=== PATIENT | female | born 1955 | race Caucasian/White ===

== ENCOUNTER 2018-02-22 06:33 | Inpatient (IN) ==
[2018-02-22] MEDS: 0.9 % Sodium Chloride 1,000 ML IVC SCH ×2 (07:53→20:43)
--- NOTE | 2018-02-22 08:59 | Pre-Sedation Evaluation ---
Pre-sedation evaluation - Pre-sedation checklist Date of procedure: 02/22/18 Procedure: left heart cath Recent Vitals: Last Vital Signs Temp 97.5 F L 02/22/18 07:25 Pulse 75 02/22/18 07:25 Resp 16 02/22/18 07:25 BP 116/71 02/22/18 07:25 Pulse Ox 98 02/22/18 07:25 H&P (including ROS) documented in medical record: Yes Previous reaction to sedatives/anesthetics: No Dietary Status: Clear fluids after Midnight Airway Assessment: Patient can open mouth completely, TMJ function normal ASA Classification *see protocol: CLASS II-Mild systemic disease Plan of Care: Pt appropriate candidate for procedure/moderate/conscious sedation , Risks/benefits of procedure/sedation discussed w/ patient/family Cardiac Registry (Cardio Only) - Functional Capacity Functional Capacity: >=4 METS with symptoms - Clincal Frailty Scale Clinical Frailty Scale: Managing Well
[2018-02-22] MEDS ORDERED: Verapamil 5 MG/2 ML VIAL ONE (09:37)
[2018-02-22] MEDS ORDERED: 0.9 % Sodium Chloride 1,000 ML ONE (09:38)
[2018-02-22] MEDS ORDERED: ISOVUE-370 200 ML INFUS..BTL IV ONE (09:38)
[2018-02-22] MEDS ORDERED: *HR* Heparin 10,000 UNIT/10 ML VIAL ONE (09:38)
[2018-02-22] MEDS ORDERED: Nitroglycerin 1,000 MCG/10 ML VIAL IV ONE (09:38)
[2018-02-22] MEDS ORDERED: Heparin 1,000 UNITS/500 mL 500 ML ONE (09:38)
--- NOTE | 2018-02-22 09:40 | History & Physical Report ---
Date of Encounter: 02/22/18 Time of Encounter: 09:45 24 Hour HP Update - Instructions Instructions: If the History and Physical is less than 30 days old and was completed prior to A.M. admission and or procedure and has NOT been updated on calendar day of procedure please complete this update prior to performing procedure. - Update Patient reports changes in Medical Condition: No Changes in examination, assessment, or condition: No Changes in Medication: No Preop tests/diagnostics Reviewed: Yes Surgery Remains Indicated: Yes Consent for Planned Operative Procedure(s) Verified: Yes
[2018-02-22] MEDS ORDERED: *HR* FentaNYL (PF) 100 MCG/2 ML VIAL ONE (10:09)
[2018-02-22] MEDS ORDERED: *HR* Midazolam HCl 2 MG/2 ML VIAL ONE (10:10)
--- NOTE | 2018-02-22 13:13 | Invasive Diagnostic Lab Proc ---
Name: Yvette Cordova Date of Study: 02/22/2018 Date: 1955 Ht: 62.0in Medical Record#: [id number] Age: 62 Wt: 149.25lb Gender: Female BSA: 1.69 Order #: [id number] BMI: 27.29 Physicians Procedure Physician: Dilan Sims MD, FACC Referring MD: Virgil Morales CNP Referring MD: Staff Name Position Time In Duyen Beaver RN Pre-Op Nurse 08:00 AM Gabriela Joe RN Pre-Op Nurse 08:00 AM Rob Mendosa RN Pre-Op Nurse 08:00 AM Toma Barnett RT (R) Scrub 10:03 AM Toma Barnett RT (R) Scrub 10:00 AM Merlin Tracy RN Roller Skate Assembler 10:00 AM Kayleigh Weiner RN Monitor 10:00 AM Priya Tovar RT (R) Monitor 10:17 AM Indications Indication Abnormal Test - Stress Procedures Performed Procedure L HRT ARTERY/VENTRICLE ANGIO Pre-Procedure Checklist Informed consent is complete signed and on chart. H&P is on chart. ID band is on and ID verified with patient. Patient NPO for procedure The procedure was described for the patient and questions were answered. ECG is on chart. Rhythm: NSR Plan of Care Patient will tolerate the procedure without complications. Adequate level of comfort will be maintained. Hemodynamics will remain stable Patient will recover from procedure without complications. Respiratory function will be maintained. Cardiac rhythm will remain stable. Patient temperature will be maintained. Patient and/or family have verbalized understanding of the procedure. Patient Education Chief Complaint/Reason for Test: Cardiac Cath Developmental Category: Adult (18-64 years) Learning Barriers: None Education Needs: Procedure Education Method: Written Information Taught: Cardiac Cath Educational Evaluation: Able to repeat information Intravenous Access Time IV Size Location DC'd Fluid/Drip Rate Units RN 08:00 AM Started with 20g 1 1/4" Lt Antecubital 50 Allergies Penicillins Jeitwvl-Qug-Jag Reductase Inhibitor Vital Signs Time BP (mmHg) HR (bpm) O2 Sat. RR (bpm) LOC 08:00 AM 116 / 71 75 98 % 16 5 = Fully awake and oriented or at pre-proc level 10:08 AM / % 5 = Fully awake and oriented or at pre-proc level 10:08 AM / % 4 = Oriented but drowsy 10:47 AM 71 / 34 66 99 % 16 4 = Oriented but drowsy 10:08 AM 142 / 119 72 98 % 0 10:24 AM 79 / 62 65 98 % 11 11:00 AM 113 / 54 64 98 % 18 4 = Oriented but drowsy 11:14 AM 108 / 64 64 96 % 15 4 = Oriented but drowsy 11:20 AM 125 / 53 64 96 % 15 4 = Oriented but drowsy 11:25 AM 115 / 55 64 97 % 15 4 = Oriented but drowsy 11:30 AM 120 / 52 64 96 % 15 4 = Oriented but drowsy 11:35 AM 119 / 51 63 96 % 15 4 = Oriented but drowsy 12:00 PM 122 / 54 66 95 % 16 5 = Fully awake and oriented or at pre-proc level Procedural Medications Time Medication Dose Units Method Given By 10:08 AM Oxygen 2 L/min nasal cannula Merlin Tracy RN 10:09 AM Versed 2 mg Intravenous Merlin Tracy RN 10:11 AM Fentanyl 50 mcg Intravenous Merlin Tracy RN 10:16 AM Lidocaine 2% 0.5 ml Subcutaneous Dilan Sims MD, FACC 10:18 AM Heparin 4000 units Nitroglycerin 200 mcg Verapamil 2.5 mg Intraarterial Dilan Sims MD, FACC 10:20 AM Lidocaine 2% 20 ml Subcutaneous Dilan Sims MD, FACC ASA Classification: CLASS II- Mild systemic disease (i.e. well-controlled diabetes, hypertension, asthma, cigarette smoking) Domonique Score Preprocedure Postprocedure Activity 2- Moves 4 extremities sustained head lift Activity 2- Moves 4 extremities sustained head lift Circulation 2- SBP +/= 20 points of pre-anesthetic level Circulation 2- SBP +/= 20 points of pre-anesthetic level Consciousness 2- Awake and alert oriented x 3 Consciousness 2- Awake and alert oriented x 3 O2 Saturation 2- Able to maintain O2 satruation of 92% on room air O2 Saturation 2- Able to maintain O2 satruation of 92% on room air Respiratory 2- Able to deep breathe and cough well Respiratory 2- Able to deep breathe and cough well Total Score 10 Total Score 10 Contrast Agent: Isovue Diagnostic Contrast: 59 ml Total Contrast: 59 ml Fluoro Dose: 12 mGy Procedure Log Time Note Enter By 10:02 AM Pt arrived to label tacker 1 at 10:02 kmavis 10:02 AM Case Start 10:02 AM CathStat 10:03 AM Physician arrived 10:03 kmavis 10:03 AM Sign in performed according to hospital policy. kmavis 10:03 AM Meet and greet completed kmavis 10:05 AM Procedure start 10:05 kmavis 10:05 AM Patient charges- Angio tray pack, Navilyst 3mm J, Pulse Oximetry and ACIST tubing and transducer kmavis 10:05 AM IV Supplies used: J loop Angio Cath. kmavis 10:05 AM Case Delayed Prior emergency case kmavis 10:05 AM Hair removed from procedure site in holding area using clippers. Right wrist, right groin prepped with Chloraprep by Jalen De Guzman RT (R), then patient was draped. Skin intact. [facility] 10:07 AM Vitals capture started with the following parameters, Patient=Adult, Interval=5 min, Initial Apfvsonu=405 mmHg, Deflation Rate=3 mmHg, Cuff placed on Right Arm 10:07 AM ASA Class CLASS II- Mild systemic disease (i.e. well-controlled diabetes, hypertension, asthma, cigarette smoking) [facility] 10:08 AM Time: 10:08LOC: 5 = Fully awake and oriented or at pre-proc level kmavi 10:08 AM Time: 10:08 Patient comfortable and pain free: Yes [facility] 10:08 AM Time: 10:08 Oxygen on at 2 L/min per nasal cannula by Merlin Tracy RN [facility] 10:08 AM HR=72 bpm, TOXQ=726/119 mmhg, SpO2=98.0 %, Resp=0 B/min, EtCO2=32 mmHg, Comment=nsr 10:09 AM Toma Barnett RT (R) Position: Scrub Time in: 10:00 [facility] 10:09 AM Merlin Tracy RN Position: Roller Skate Assembler Time in: 10:00 [facility] 10:09 AM Kayleigh Weiner RN Position: Monitor Time in: 10:00 [facility] 10:11 AM Priya Tovar RT (R) Position: Monitor Time in: 10:17 [facility] 10:11 AM Time: 10:09 Versed 2 mg Intravenous Given by Merlin Tracy RN [facility] 10:11 AM Time: 10:11 Fentanyl 50 mcg Intravenous Given by Merlin Tracy RN kmavis 10:12 AM Recorded ECG: HR=79 Condition=Condition 1 10:14 AM Pressure channel 1 zeroed. 10:15 AM Vitals capture stopped. 10:16 AM Clinical Presentation: Unstable angina kmavis 10:16 AM Time out performed according to hospital policy kmavis 10:16 AM Time: 10:16 0.5 ml Lidocaine 2% to right radial Subcutaneous Given by Dilan Sims MD, [facility] kmavis 10:16 AM Vitals capture started with the following parameters, Patient=Adult, Interval=5 min, Initial Sofkrsuy=437 mmHg, Deflation Rate=3 mmHg, Cuff placed on Right Arm 10:18 AM Access obtained by percutaneous puncture. 5Fr 10cm Terumo Glidesheath sheath placed in right Radial artery. [id number] kmavis 10:19 AM Time: 10:18 Patient given 4,000 units Heparin, 200 mcg Nitroglycerin, and 2.5 mg Verapamil Intraarterial by Dilan Sims MD, FAC. This is given to reduce risk of vessel spasm and thrombosis. kmavis 10:19 AM 5Fr TIG catheter inserted over the wire [facility] kmavis 10:19 AM Vitals capture stopped. 10:19 AM 0.035 260cm Navilyst 3mmJ wire [id number] kmavis 10:19 AM unable to advance catheter. setting up for femoral approach. kmavis 10:21 AM Vitals capture started with the following parameters, Patient=Adult, Interval=5 min, Initial Unmfuitu=574 mmHg, Deflation Rate=3 mmHg, Cuff placed on Right Arm 10:22 AM Time: 10:20 20 ml Lidocaine 2% to right groin Subcutaneous Given by Dilan Sims MD, [facility] kmavis 10:23 AM Bolus angiogram of right Femoral complete: 2 ml/sec for a total of 4 mls kmavis 10:23 AM Time: 10:08LOC: 4 = Oriented but drowsy kmavis 10:23 AM Time: 10:08 Patient comfortable and pain free: Yes kmavis 10:23 AM 0.035 145cm [place] Hi-Torque wire [id number] kmavis 10:23 AM Access obtained by percutaneous puncture. 5Fr 10cm Terumo [place] sheath placed in right Femoral artery. [id number] kmavis 10:23 AM 5Fr FL 4 catheter inserted over the wire DN kmavis 10:23 AM 0.035 145cm Navilyst 3mmJ wire [id number] kmavis 10:23 AM LCA angiography performed in multiple views. kmavis 10:24 AM HR=65 bpm, NIBP=79/62 mmhg, SpO2=98.0 %, Resp=11 B/min, EtCO2=37 mmHg 10:27 AM Recorded Pressure: Ao, HR=65, Condition=Condition 1 (Aorta) Ao 104/49/71 10:29 AM Catheter removed kmavis 10:29 AM Vitals capture stopped. 10:29 AM Vitals capture started with the following parameters, Patient=Adult, Interval=5 min, Initial Vvhdotde=886 mmHg, Deflation Rate=3 mmHg, Cuff placed on Right Arm 10:29 AM 5Fr FR 4 catheter inserted over the wire DN kmavis 10:30 AM RCA angiography performed in multiple views. kmavis 10:30 AM Coronary Dominance: right kmavis 10:32 AM 5Fr Pigtail catheter inserted over the wire DN kmavis 10:32 AM Vitals capture stopped. 10:32 AM Recorded Pressure: LV, FT=936, Condition=Condition 1 (Left Ventricle) LV 92/35/56 10:33 AM Bolus angiogram of right Ventricle complete: 10 ml/sec for a total of 20 mls kmavis 10:33 AM Recorded Pressure: LV, HR=84, Condition=Condition 1 (Left Ventricle) LV 83/42/41 10:33 AM Recorded Pressure: LV, HR=67, Condition=Condition 1 (Left Ventricle) LV 104/18/37 10:35 AM Lesion found in Proximal RCA. Pre Stenosis: 50 Pre DOMO Flow: kmavis 10:36 AM Lesion found in Mid LMCA. Pre Stenosis: 40 Pre DOMO Flow: kmavis 10:36 AM Lesion found in Proximal LAD. Pre Stenosis: 70 Pre DOMO Flow: kmavis 10:36 AM Lesion found in Mid LAD. Pre Stenosis: 99 Pre DOMO Flow: kmavis 10:36 AM Lesion found in Mid Circumflex. Pre Stenosis: 70 Pre DOMO Flow: kmavis 10:37 AM Lesion found in 1st Marginal. Pre Stenosis: 70 Pre DOMO Flow: kmavis 10:40 AM Lesion found in RPLV. Pre Stenosis: 90 Pre DOMO Flow: kmavis 10:43 AM Left Main Coronary Artery with 40% stenosis kmavis 10:43 AM Mid/Distal Left Anterior Descending Coronary Artery and diagonal branches with 99% stenosis. If graft is supplying this area, 0 % stenosis kmavis 10:43 AM Circumflex, Obtuse Marginal, Left Posterior Descending, and Left Posterolateral Coronary Arteries with 70 % stenosis. If graft is supplying this area, 0 % stenosis kmavis 10:44 AM Proximal Left Anterior Descending Coronary Artery with 70% stenosis. If graft is supplying this territory, 0 % stenosis. kmavis 10:44 AM Right Coronary, Right Posterior Descending Arteries with Right Posterolateral and Acute Marginal branches with 90 % stenosis. If graft is supplying this area, 0 % stenosis kmavis 10:45 AM Cardiothoracic surgeon consulted by physician kmavis 10:45 AM Procedure completed at 10:45 02/22/2018 kmavis 10:45 AM Did you address DOMO flow and Dominance? Yes kmavis 10:46 AM Sign out completed: Radiation Dose 112.89 mGy, 12.28 Gy/cm2 Fluoro Time: 1.5 Isovue 370 - 200ml contrast 59 ml given by Dilan Sims MD, [facility]. Complications: NoneCardiac Rehab Consult needed: NoConfirmed administered medications: Yes kmavis 10:46 AM Isovue 370 - 200ml,1 Bottle(s) used. kmavis 10:46 AM Sheath left in place to be pulled on floor/holding areaV+Pad kmavis 10:47 AM Arterial sheath pulled, Vasc Band closure device used and was Successful S/N. kmavis 10:47 AM 9 ml air in Vasc Band. kmavis 10:47 AM Post ECG NSR kmavis 10:49 AM Post Blood Pressure 104/56 kmavis 10:49 AM Information taught Cardiac Cath and Vasc Band kmavis 10:49 AM Education needs Procedure, Plan of Care, Obtaining further treatment, and Responsibilities of Patient in Care kmavis 10:49 AM Learning barriers :None kmavis 10:49 AM Education Methods Verbal kmavis 10:49 AM Education evaluation Able to repeat information kmavis 10:49 AM Site status No bleeding/hematoma - Rt Groin as reported by Toma Barnett RT (R) at 10:49 kmavis 10:49 AM Opsite applied kmavis 10:49 AM Report given to willy CHOPRA Pt taken to Holding room Room #2. 10:49 kmavis 10:50 AM Patient out of room: 10:50 kmavis 10:50 AM Complications: None kmavis 10:53 AM Patient's hypotensive placed in trendelenburg. pt alert but drowsy. mwilliams 11:38 AM Arterial sheath pulled using manual compression and V+ Pad for 20 minutes by Rob Mendosa RN scoates 11:38 AM Site status No bleeding/hematoma - Rt Groin as reported by Rob Mendosa RN at 11:38 scoates 12:07 PM Per patient request, RN called patients mother and informed her that the patient will be admitted and the cardiothoracic surgeons will be discussing possible surgery. mprater 12:15 PM report called to Mary on 2NE mprater 12:25 PM patient transported to 2NE mprater Complications Complication None None Hemodynamics Pressures Site Systolic/A Wave Diastolic/V Wave Mean AO 104 49 71 LV 92 35 56 LV 83 42 41 LV 104 18 37 Post Procedure Information Blood Pressure: 104/56 mmHg Rhythm: NSR Post procedural instructions were given Surgery consult for CABG Closure Device Time Device Success/Fail 02/22/2018 10:53:00 AM Manual Compression 02/22/2018 10:54:00 AM Mechanical Compression Successful Site Checks Time Location Status Staff Sheath In? Note 10:49 AM Rt Groin No bleeding/hematoma Toma Barnett RT (R) 10:46 AM Rt Groin No bleeding/ No Hematoma Duyen Beaver RN Yes 10:46 AM Rt Wrist No bleeding/ No Hematoma Duyen Beaver RN 11:00 AM Rt Wrist No bleeding/ No Hematoma Rob Mendosa RN 2 ml air deflated. 11:00 AM Rt Groin No bleeding/ No Hematoma Rob Mendosa RN 11:38 AM Rt Groin No bleeding/hematoma Rob Mendosa RN 11:14 AM Rt Groin No bleeding/ No Hematoma Rob Mendosa RN sheath pulled 11:14 AM Rt Wrist Oozing Rob Mendosa RN no air removed 11:35 AM Rt Wrist No bleeding/ No Hematoma Rob Mendosa RN 2mls air removed 12:00 PM Rt Wrist No bleeding/ No Hematoma Gabriela Joe RN 2CC AIR DEFLATED 12:00 PM Rt Groin No bleeding/ No Hematoma Gabriela Joe RN 12:18 PM Rt Groin No bleeding/ No Hematoma Gabriela Joe RN band removed, site cleansed and dressing applied Pulses Time Site Pre-Procedure Post-Procedure Note 02/22/2018 8:00:00 AM Bilateral DP & PT 1+ 02/22/2018 8:00:00 AM Bilateral radial 2+ 02/22/2018 10:47:00 AM Rt Radial 2+ 2+ 02/22/2018 10:47:00 AM Lt Radial 1+ 02/22/2018 11:00:00 AM Rt Radial 2+ 02/22/2018 11:00:00 AM Bilateral DP & PT 1+ 02/22/2018 11:14:00 AM Bilateral DP & PT 1+ 02/22/2018 11:35:00 AM Bilateral DP & PT 1+ Updated by Gabriela Joe RN on 02/22/2018 1:06:42 PM Gabriela Joe RN electronically signed on 02/22/2018 1:07:14 PM with status of Final
--- NOTE | 2018-02-22 13:21 | Cardiothoracic Consult Note ---
Date of Encounter: 02/22/18 Time of Encounter: 13:17 Assessment and Plan (1) Coronary artery disease Current Visit: Yes Status: Acute The assessment and plan as outlined above was discussed with the patient and/or family members who expressed understanding and agreement. All questions were answered. The patient has triple-vessel disease. Her mid LAD lesion is 99% and tight. I did discuss coronary artery bypass grafting with her. The procedure, its risks , benefits and alternatives were explained. Her most significant risk would be an increased risk of stroke due to her carotid disease. In addition she would have an increased risk of pulmonary complications due to her COPD. She is unsure and wishes to discuss this with her family. I will check a stat carotid duplex as is been over a year since her last one. Qualifiers: Coronary Disease-Associated Artery/Lesion type: [place] artery [place] vs. transplanted heart: [place] heart Associated angina: with other forms of angina Qualified Code(s): I25.118 - Atherosclerotic heart disease of [place] coronary artery with other forms of angina pectoris - History of Present Illness History of present illness: Ms. Cordova is a 62 year old female The patient is a 62-year-old female who has had dyspnea on exertion. No history of myocardial infarction. She did have a positive stress test. Echocardiogram revealed good ventricular function with no significant valvular disease. Cardiac catheterization done today revealed a 40% left main lesion. There was triple-vessel disease. There was a 99% mid LAD lesion. There was a 70% lesion in the first obtuse marginal branch. The proximal right coronary artery had a 50% lesion and there was an 80% lesion in the distal right coronary artery which was small. The patient's medications include no blood thinners, other than a baby aspirin. She is allergic to penicillin and statins. Social history. She lives in [place] with her mother. She continues to smoke up to a pack of cigarettes per day AGAINST MEDICAL ADVICE and has done so for 40 years. Does not drink alcohol. Family history is positive for coronary artery disease. Review of systems is notable for a TIA 5-6 years ago that consisted of confusion. No history of recent stroke or TIA. No history of saphenous vein varicosities or strippings. In September 2016 she had a carotid duplex which revealed nonstenotic plaque on the left and a right carotid artery that had a 60-79% lesion. She does have a history of COPD, but does not use oxygen. She is on inhalers. Past Med Surg Social Fam HX - Past Medical History Medical history: arthritis, COPD, hypertension, peripheral artery disease Psychiatric history: no psych history - Past Surgical History Additional surgical history: tubal ligation, tonsillectomy - Social History Smoking Status: Current every day smoker Packs per day: less than a pack Smokeless Tobacco Status: No Alcohol use: none Drug use: none - Family History Mother Living Status: Still Living Hx Family Cardiac Disorders: Yes (HTN) Hx Family Endocrine Disorder: Yes (Kidney Diease diaylsis) Father Living Status: Age at : 75 Cause of : dementia heart diease Medications and Allergies Albuterol Sulfate [Ventolin Hfa] 18 gm IH Q6H PRN 02/22/18 [History] Aspirin [Lo-Dose Aspirin EC] 81 mg PO DAILY 02/22/18 [History] Cyclobenzaprine HCl 5 mg PO TID PRN 02/22/18 [History] Losartan/Hydrochlorothiazide [Losartan-Hctz 100-25 mg Tab] 1 each PO DAILY 02/22 [History] Metoprolol Tartrate [Lopressor] 50 mg PO BID 02/22/18 [History] Mometasone/Formoterol [Dulera 100 Mcg/5 Mcg Inhaler] 13 gm IH DAILY 02/22/18 [ History] Paroxetine HCl [Paxil] 10 mg PO DAILY 02/22/18 [History] cloNIDine HCl [CloNIDine HCl] 0.1 mg PO BID 02/22/18 [History] 3 Allergy/AdvReac Type Severity Reaction Status Date / Time Penicillins Allergy Hives Verified 02/09/18 12:21 Rnddhhj-Bgo-Czr Reductase Allergy Nausea Verified 02/09/18 12:21 Inhibitor [Statins] All Systems Review: The remainder of the systems were reviewed and are negative Physical Examination Vital Signs, Last 4 Hours Temp Pulse Resp BP Pulse Ox 02/22/18 13:00 74 162/72 98 02/22/18 12:45 69 152/64 98 02/22/18 12:38 97.5 F L 69 15 130/62 98 02/22/18 12:30 69 130/62 97 Pupils are equal, round and reactive to light and accommodation. She is edentulous. Neck is supple. Trachea in the midline. She does have a right carotid bruit. No thyromegaly. Lungs have scattered wheezes. Heart is in a regular rate and rhythm. No murmurs, gallops or rubs. Abdomen is benign. She is status post tubal ligation. No tenderness, rebound or guarding. No peripheral edema. No saphenous vein varicosities or strippings. Cranial nerves , motor and sensory intact. Consult Discharge Plan - Plan Referrals: Maritza Kang CNP [Primary Care Provider] -
--- NOTE | 2018-02-22 13:50 | Anesthesia Evaluation PreOp ---
Date of Encounter: 02/23/18 Time of Encounter: 07:32 - Past History Planned Operation: CABG Cardiac History: HTN, Hyperlipidemia, Other (CAD has tight mid LAD lesion, PAD with carotid stenosis) Pulmonary History: Smoker, Pack/yr (>40pk/yr) GROUND TRANSPORTATION OPERATOR History: Denies Any Significant HX Other Medical History: Denies Any Significant HX Anesthesia History: No Prior Anesthetic Complications, Past Anesthesia (tubal, tonsils) Alcohol Use: none Drug use: none Medications and Allergies Albuterol Sulfate [Ventolin Hfa] 18 gm IH Q6H PRN 02/22/18 [History] Aspirin [Lo-Dose Aspirin EC] 81 mg PO DAILY 02/22/18 [History] Cyclobenzaprine HCl 5 mg PO TID PRN 02/22/18 [History] Losartan/Hydrochlorothiazide [Losartan-Hctz 100-25 mg Tab] 1 each PO DAILY 02/22 [History] Metoprolol Tartrate [Lopressor] 50 mg PO BID 02/22/18 [History] Mometasone/Formoterol [Dulera 100 Mcg/5 Mcg Inhaler] 13 gm IH DAILY 02/22/18 [ History] Paroxetine HCl [Paxil] 10 mg PO DAILY 02/22/18 [History] cloNIDine HCl [CloNIDine HCl] 0.1 mg PO BID 02/22/18 [History] 3 Allergy/AdvReac Type Severity Reaction Status Date / Time Penicillins Allergy Hives Verified 02/09/18 12:21 Uufmfon-Tta-Vfg Reductase Allergy Nausea Verified 02/09/18 12:21 Inhibitor [Statins] - Meds/Allergy Pre-op Review Medications Reviewed: Yes Allergies Reviewed: Yes Beta Blockers on Current Med List: Yes If Beta Blockers taken, Date/Time (Last Dose taken): today 557 Anesthesia Results - Labs 02/22/18 15:50 02/22/18 15:50 Laboratory Tests 02/16/18 02/16/18 13:47 13:47 Hgb 12.5 Hct 37.8 Plt Count 273 Sodium 135 L Potassium 3.6 BUN 14 Creatinine 0.88 - Imaging Additional studies: stress: Impression: Pharmacologic stress ECG is non-diagnostic for ischemia due to baseline non-specific ST and T changes. Gated EF = 74%. Small to medium sized, moderate intensity, reversible perfusion defect involving the apical anterior, apical septal, apical lateral, and apex segments suggestive of ischemia. echo: Impressions: LVEF 60%. Normal LV chamber size and function. Mild concentric left ventricular hypertrophy. Mild left ventricular diastolic dysfunction. Normal right ventricular structure and function. Unable to estimate RVSP due to lack of TR jet. No significant valvular dysfunction. Anesthesia Exam Selected Entries 02/22/18 12:38 02/22/18 13:15 Temperature 97.5 F L Pulse Rate 71 Blood Pressure 149/72 O2 Sat by Pulse Oximetry 98 Weight: 70kg - HEENT Pupil (Motor): EOMI Mallampati: II Teeth: Edentulous Oral Opening: Greater than 3 - GROUND TRANSPORTATION OPERATOR LOC: Oriented GROUND TRANSPORTATION OPERATOR Motor: Normal RUE, Normal LUE, Normal RLE, Normal LLE, Normal Face GROUND TRANSPORTATION OPERATOR Sensory: Normal: RUE, LUE, RLE, LLE, Face - Cardiac Rhythm: Regular Murmur: None - Pulmonary Breath Sounds: bilateral Clear Respiratory Effort: Symmetrical Anesthesia Assess/Plan ASA Score: 4 Modified [place] Scale for Level of Consciousness: Cooperative, oriented, and tranquil Anesthetic Plan: General Monitoring Plan: Standard Monitors, A-Line, PAC, DIGNA Recovery Plan: ICU (agrees to GA, lines, DIGNA and blood)
[2018-02-22] MEDS ORDERED: Naloxone 0.4 MG/ML INJ IVP PRN (14:25)
[2018-02-22] MEDS ORDERED: Acetaminophen 325 MG TABLET PO PRN (14:26)
[2018-02-22] MEDS ORDERED: Ondansetron 4 MG/2 ML VIAL IVP PRN (14:26)
[2018-02-22] MEDS ORDERED: *HR* HYDROcodone/Acet 5/325 mg TABLET PO PRN (14:26)
--- NOTE | 2018-02-22 15:43 | Event Note ---
Date of Encounter: 02/22/18 Time of Encounter: 15:40 The patient has discussed open heart surgery with her mother and has decided to proceed. She is scheduled for tomorrow morning. Operative consent was obtained. Risks of surgery include , infection, bleeding, myocardial infarction, stroke, clots around the heart, renal or respiratory failure, acute or chronic graft closure, sternal dehiscence and phrenic nerve injury. The patient is at increased risk for respiratory complications because of her active smoking and COPD. She is at increased risk for stroke because of her known carotid disease. I have ordered a stat carotid duplex. However, the patient has had no recent TIAs or strokes and CABG would most likely be done first in any event. At this point, the patient has no questions.
[2018-02-22 16:05] LABS: Estimated Average Glucose 123 mg/dl; Hemoglobin A1C 5.9 %
[2018-02-22 16:12] LABS: Basophils % 0.3 %; Eosinophils # 0.1 K/mcL (0.0-0.6); Eosinophils % 0.9 %; Hematocrit 36.4 % (35.3-44.9); Hemoglobin 12.2 g/dL (11.5-15.4); Immature Granulocytes % 0.5 % (0-4); Lymphocytes # 3.1 K/mcL (0.6-4.6); Lymphocytes % 24.6 %; Mean Corpuscular HGB Conc 33.5 g/dL (31.6-35.5); Mean Corpuscular Volume 95.5 fL (83.0-100.0); Mean Platelet Volume 9.9 fL (9.4-12.4); Monocytes % 8.3 %; Neutrophils # 8.1 K/mcL (1.6-8.9); Platelet Count 208 K/mcL (140-400); Red Blood Count 3.81 M/mcL (3.82-4.97); Red Cell Distribution Width 13.5 % (11.5-14.5); Segmented Neutrophils % 65.4 %
[2018-02-22 16:13] LABS: INR 1.1; Prothrombin Time 12.1 Seconds (9.4-12.1)
[2018-02-22 16:16] LABS: Activated Partial Thrombo Time 30.3 Seconds (26.0-36.0)
[2018-02-22 16:24] LABS: BUN/Creatinine Ratio 16 (6-26); Blood Urea Nitrogen 13 mg/dL (8-23); Calcium 9.1 mg/dL (8.6-10.3); Carbon Dioxide 30 mEq/L (23-29); Chloride 103 mEq/L (98-107); Chol/HDL Ratio 5.4 (0-4.9); Cholesterol 194 mg/dL (< 200); Glucose 95 mg/dL (70-105); HDL Cholesterol 36 mg/dL (40-59); LDL Cholesterol,Calculated 122 mg/dL (0-99); Osmolality,Calculated 282 (280-300); Potassium 3.8 mEq/L (3.5-5.1); Sodium 136 mEq/L (136-145); Triglycerides 180 mg/dL (< 150); eGFR For Non-African Americans > 60 (> 60)
[2018-02-22] MEDS: Chlorhexidine Rinse 15 ML MOUTHWASH MM SCH (20:38)
[2018-02-22] MEDS: cloNIDine HCl 0.1 MG TABLET PO SCH (20:38)
[2018-02-23 03:58] LABS: Bilirubin,Urine Negative (Negative); Blood,Urine Negative (Negative); Clarity,Urine Cloudy (Clear); Color,Urine Yellow (Yellow); Glucose,Urine (UA) Normal (Normal); Ketones,Urine Negative (Negative); Leukocyte Esterase,Urine Moderate (Negative); Nitrite,Urine Positive (Negative); PH,Urine 6.5 pH Units (5.0-8.0); Protein,Urine Negative (Neg-Trace); Specific Gravity,Urine 1.014 (1.010-1.025); Urobilinogen,Urine Normal (Normal)
[2018-02-23 04:01] LABS: Bacteria,Urine Moderate per hpf (None-Few); Hyaline Casts,Urine None Seen per lpf (None-Few); RBC,Urine 0-3 per hpf (0-3); Squamous Epithelial Cell,Urine Few per lpf (None-Few); WBC,Urine 30-50 per hpf (0-3)
[2018-02-23] MEDS: Chlorhexidine Rinse 15 ML MOUTHWASH MM SCH (05:59)
[2018-02-23] MEDS ORDERED: Clindamycin 900 MG/50 ML 900 MG/50 ML IV.SOLN IVPB ONE (06:00)
[2018-02-23] MEDS ORDERED: Aspirin 81 MG TAB.CHEW PO ONE (06:00)
[2018-02-23] MEDS ORDERED: Heparin 15,000 UNIT in 0.9 % Sodium Chloride 500 ML IV ONE (06:00)
[2018-02-23] MEDS ORDERED: Insulin Human Regular 100 UNIT in 0.9 % Sodium Chloride 100 ML IV PRN (06:00)
[2018-02-23] MEDS ORDERED: Dextrose 50 % in Water (Vial) 30 ML, Sodium Bicarbonate 20 MEQ, Potassium Chloride 15 M... TH ONE (06:00)
[2018-02-23] MEDS ORDERED: Norepinephrine 4 MG in D5% in Water 250 ML IVC PRN (06:00)
[2018-02-23] MEDS ORDERED: Dextrose 50 % in Water (Vial) 30 ML, Sodium Bicarbonate 20 MEQ, Lidocaine 1% 5 ML, Insu... TH ONE ×3 (06:00)
[2018-02-23] MEDS ORDERED: Nitroglycerin 25 MG/250 ML INFUS..BTL IVC ONE (06:30)
[2018-02-23] MEDS ORDERED: NiCARdipine 2.5 MG/10 ML Syringe IVPB ONE (06:30)
[2018-02-23] MEDS ORDERED: *HR* Rocuronium Bromide 50 MG/5 ML VIAL ONE (06:37)
[2018-02-23] MEDS ORDERED: Tranexamic Acid 1,000 MG/10 ML VIAL ONE (06:37)
[2018-02-23] MEDS ORDERED: Famotidine 20 MG/2 ML VIAL ONE (06:37)
[2018-02-23] MEDS ORDERED: *HR* Etomidate 20 MG/10 ML AMPUL IVP ONE (06:37)
[2018-02-23] MEDS ORDERED: Protamine Sulfate 250 MG/25 ML VIAL IVP ONE (06:37)
[2018-02-23] MEDS ORDERED: *HR* PHENYLEPHRINE 1,000 MCG/10 ML SYRINGE IVP ONE (06:37)
[2018-02-23] MEDS ORDERED: *HR* Midazolam HCl 5 MG/5 ML VIAL IVP ONE ×2 (06:43→15:21)
[2018-02-23] MEDS ORDERED: *HR* FentaNYL (PF) 1,000 MCG/20 ML VIAL ONE (06:43)
[2018-02-23 08:24] LABS: ABG Base Excess 1 mEq/L (-2 to 3); ABG Chloride 104 mEq/L (98-107); ABG Glucose 107 mg/dL (60-95); ABG HCO3 29 mEq/L (21-27); ABG Ionized Calcium 1.24 mmol/L (1.15-1.35); ABG Oxygen Saturation 100 % (95-98); ABG PCO2 62 mmHg (35-45); ABG PH 7.28 pH Units (7.32-7.45); ABG PO2 378 mmHg (85-104); ABG TCO2 31 mEq/L (20-26)
[2018-02-23] MEDS: Budesonide/Formoterol 80/4.5 MDI IH SCH (11:38)
[2018-02-23] MEDS: Aspirin Enteric Coated 81 MG Tablet PO SCH (11:42)
[2018-02-23] MEDS: cloNIDine HCl 0.1 MG TABLET PO SCH ×2 (11:43→21:38)
--- NOTE | 2018-02-23 12:24 | Operative Note ---
Date of procedure: 02/23/18 Pre-op diagnosis: CAD Post-op diagnosis: same Procedure: 1. Attempted arterial line placement. Implants: None. Complications: None. Anesthesia: GETA Surgeon: Maximo Mejia Was there an gynecological assistant present: Yes Driver/Sales Workers: Ronaldo Gonzalez Estimated blood loss (cc): 10 Specimen: None. Condition: stable Disposition: PACU Procedure in Detail: The patient is a 62-year-old hypertensive lady with COPD and peripheral arterial disease. She has experienced shortness of breath and dyspnea exertion for the last month and underwent an extensive cardiac workup. Cardiac catheterization performed yesterday revealed severe 3 vessel CAD and an LVEF 65- 70%. She was recommended for CABG. The patient was taken to the operating room and an attempt was made to place appropriate monitoring lines. During the arterial line placement, no reliable monitoring line could be positioned. Attempts were made to place an arterial line in the left radial artery, left brachial artery, right radial artery, left femoral artery, and right femoral artery. On multiple occasions the artery was accessed; however, a guidewire could not be passed proximally. These attempts were made using both ultrasound guidance and SmartNeedle technology. Dr. Dilan Sims, in cash applications analyst was notified of our difficulty and arrived in the operating room. We discussed therapeutic options for this patient and decided that the patient would undergo PCI with LAD stent placement. The operation was terminated this point the patient was transferred to the PACU in satisfactory condition.
--- NOTE | 2018-02-23 12:37 | Pre-Sedation Evaluation ---
Pre-sedation evaluation - Pre-sedation checklist Date of procedure: 02/23/18 Procedure: left heart cath Recent Vitals: Last Vital Signs Temp 97.5 F L 02/23/18 11:44 Pulse 68 02/23/18 11:44 Resp 16 02/23/18 11:44 BP 165/62 02/23/18 11:44 Pulse Ox 100 02/23/18 11:44 H&P (including ROS) documented in medical record: Yes Previous reaction to sedatives/anesthetics: No Dietary Status: Clear fluids after Midnight Airway Assessment: Patient can open mouth completely, TMJ function normal ASA Classification *see protocol: CLASS II-Mild systemic disease Plan of Care: Pt appropriate candidate for procedure/moderate/conscious sedation , Risks/benefits of procedure/sedation discussed w/ patient/family Cardiac Registry (Cardio Only) - Functional Capacity Functional Capacity: >=4 METS with symptoms - Clincal Frailty Scale Clinical Frailty Scale: Managing Well
[2018-02-23] MEDS ORDERED: 0.9 % Sodium Chloride 1,000 ML ONE (14:57)
[2018-02-23] MEDS ORDERED: Heparin 1,000 UNITS/500 mL 500 ML ONE (14:57)
[2018-02-23] MEDS ORDERED: ISOVUE-370 200 ML INFUS..BTL IV ONE (14:58)
[2018-02-23] MEDS ORDERED: Nitroglycerin 1,000 MCG/10 ML VIAL IV ONE (14:58)
[2018-02-23] MEDS ORDERED: *HR* Heparin 10,000 UNIT/10 ML VIAL ONE (14:58)
[2018-02-23] MEDS ORDERED: *HR* FentaNYL (PF) 100 MCG/2 ML VIAL ONE (15:21)
[2018-02-23] MEDS ORDERED: Tirofiban 12.5 MG/250ML 12.5 MG/250 ML BAG ONE (15:40)
[2018-02-23] MEDS ORDERED: Tirofiban 12.5 MG/250ML 12.5 MG/250 ML BAG IVC SCH (16:30)
--- NOTE | 2018-02-23 16:37 | Invasive Diagnostic Lab Proc ---
Name: Yvette Cordova Date of Study: 02/23/2018 Date: 1955 Ht: 61.8in Medical Record#: [id number] Age: 62 Wt: 151.46lb Gender: Female BSA: 1.69 Order #: [id number] BMI: 27.87 Physicians Procedure Physician: Dilan Sims MD, [facility] Referring MD: Referring MD: Staff Name Position Time In Sites, Priya RT (R) Monitor 03:32 PM Priya De Guzman RT (R) Scrub 03:32 PM Anand Antunez RN Tender Coordinator 03:32 PM Procedures Performed Procedure PRQ CARD POPPY STENT W/ANGIO 1 VSL Pre-Procedure Checklist Informed consent is complete signed and on chart. H&P is on chart. ID band is on and ID verified with patient. Patient NPO for procedure The procedure was described for the patient and questions were answered. Blood Pressure: 149/73 ECG is on chart. Rhythm: NSR Plan of Care Patient will tolerate the procedure without complications. Adequate level of comfort will be maintained. Hemodynamics will remain stable Patient will recover from procedure without complications. Respiratory function will be maintained. Cardiac rhythm will remain stable. Patient temperature will be maintained. Patient and/or family have verbalized understanding of the procedure. Patient Education Chief Complaint/Reason for Test: Cardiac Cath Developmental Category: Geriatric (65+ years) Developmentally Appropriate for Age: Yes Learning Barriers: None Education Needs: Procedure Education Method: Verbal Information Taught: Cardiac Cath Educational Evaluation: Able to repeat information Intravenous Access Time IV Size Location DC'd Fluid/Drip Rate Units RN 18g 1 /" Patent On Arrival Rt Antecubital 0.9NaCl 50 ml/hr Anand Antunez RN Allergies Penicillins Cnubily-Avy-Slf Reductase Inhibitor Vital Signs Time BP (mmHg) HR (bpm) O2 Sat. RR (bpm) LOC 149 / 73 67 99 % 16 5 = Fully awake and oriented or at pre-proc level 03:36 PM / % 5 = Fully awake and oriented or at pre-proc level 03:36 PM / % 5 = Fully awake and oriented or at pre-proc level 03:26 PM 134 / 90 64 100 % 14 03:27 PM 149 / 73 66 100 % 17 03:47 PM 120 / 51 61 100 % 18 03:52 PM 100 / 56 66 100 % 27 03:57 PM 110 / 58 65 99 % 13 04:02 PM 118 / 61 64 100 % 12 04:07 PM 122 / 59 65 100 % 12 04:12 PM 127 / 57 64 100 % 13 Procedural Medications Time Medication Dose Units Method Given By 03:35 PM Oxygen 2 L/min nasal cannula Anand Antunez RN 03:35 PM Versed 2 mg Intravenous Anand Antunez RN 03:35 PM Fentanyl 50 mcg Intravenous Anand Antunez RN 03:43 PM Lidocaine 2% 17 ml Subcutaneous Dilan Sims MD, FACC 03:46 PM Heparin 4000 units Intravenous Anand Antunez RN 03:49 PM Nitroglycerin 100 mcg Intracoronary Dilan Sims MD 04:09 PM Plavix 600 mg Orally Anand Antunez RN ASA Classification: CLASS II- Mild systemic disease (i.e. well-controlled diabetes, hypertension, asthma, cigarette smoking) Domonique Score Preprocedure Postprocedure Activity 2- Moves 4 extremities sustained head lift Activity 2- Moves 4 extremities sustained head lift Circulation 2- SBP +/= 20 points of pre-anesthetic level Circulation 2- SBP +/= 20 points of pre-anesthetic level Consciousness 2- Awake and alert oriented x 3 Consciousness 2- Awake and alert oriented x 3 O2 Saturation 2- Able to maintain O2 satruation of 92% on room air O2 Saturation 2- Able to maintain O2 satruation of 92% on room air Respiratory 2- Able to deep breathe and cough well Respiratory 2- Able to deep breathe and cough well Total Score 10 Total Score 10 Contrast Agent: Isovue Diagnostic Contrast: 39 ml Total Contrast: 39 ml Fluoro Dose: 1128 mGy Activated Clotting Time Time Seconds to Clot 04:17 PM 245 Procedure Log Time Note Enter By 03:25 PM NIBP STAT measurement started. 03:26 PM CathStat 03:26 PM Case Start 03:26 PM HR=64 bpm, XCSQ=723/90 mmhg, TaF4=861 %, Resp=14 B/min 03:26 PM NIBP STAT measurement started. 03:27 PM HR=66 bpm, TRBY=578/73 mmhg, CeI6=224.0 %, Resp=17 B/min 03:32 PM Pt arrived to car barn laborer 2 at 15:32 tsites 03:32 PM Priya Tovar RT (R) Position: Monitor Time in: 15:32 tsites 03:32 PM Priya De Guzman RT (R) Position: Scrub Time in: 15:32 tsites 03:33 PM Anand Antunez RN Position: Tender Coordinator Time in: 15:32 tsites 03:33 PM Patient charges- Angio tray pack, Navilyst 3mm J, Pulse Oximetry and ACIST tubing and transducer tsites 03:33 PM Case Delayed No tsites 03:35 PM Physician arrived 15:35 tsites 03:35 PM Meet and greet completed tsites 03:35 PM Sign in performed according to hospital policy. tsites 03:35 PM Procedure start 15:35 tsites 03:35 PM Hair removed from procedure site in holding area using clippers. Bilateral groin prepped with Chloraprep by Priya Tovar RT (R), then patient was draped. Skin intact. tsites 03:35 PM Time: 15:35 Oxygen on at 2 L/min per nasal cannula by Anand Antunez RN tsites 03:35 PM Time: 15:35 Versed 2 mg Intravenous Given by Anand Antunez RN tsites 03:36 PM Time: 15:35 Fentanyl 50 mcg Intravenous Given by Anand Antunez RN tsites 03:36 PM Time: 15:36 Patient comfortable and pain free: Yes tsites 03:36 PM Time: 15:36LOC: 5 = Fully awake and oriented or at pre-proc level tsites 03:36 PM Clinical Presentation: Unstable angina tsites 03:36 PM Pressure channel 1 zeroed. 03:36 PM Recorded ECG: HR=66 Condition=Condition 1 03:41 PM Time out performed according to hospital policy tsites 03:44 PM Time: 15:43 17 ml Lidocaine 2% to right groin Subcutaneous Given by Dilan Sims MD, [facility] tsites 03:44 PM Access obtained by percutaneous puncture. 6Fr 10cm Terumo [place] sheath placed in right Femoral artery. [id number] tsites 03:44 PM 0.035 145cm Navilyst 3mmJ wire [id number] tsites 03:45 PM PCI Status Urgent tsites 03:45 PM 6Fr EBU 3.5 Runway guide catheter was used to cannulate the PCI vessel successfully. reused? No tsites 03:45 PM Inflation device was opened. tsites 03:45 PM Wire removed tsites 03:46 PM Time: 15:46 Heparin 4000 units Intravenous Given by Anand Antunez RN tsites 03:47 PM Vitals capture started with the following parameters, Patient=Adult, Interval=5 min, Initial Moaenqro=086 mmHg, Deflation Rate=5 mmHg, Cuff placed on Right Arm 03:47 PM HR=61 bpm, YVPV=084/51 mmhg, NiH5=406.0 %, Resp=18 B/min 03:47 PM Recorded Pressure: Ao, HR=62, Condition=Condition 1 (Aorta) Ao 114/47/70 03:47 PM LCA angiography performed in multiple views. tsites 03:48 PM Coronary Dominance: right tsites 03:48 PM Lesion found in Mid LAD. Pre Stenosis: 99 Pre DOMO Flow: tsites 03:49 PM 0.035 145cm VSI Ankur-Torque wire [id number] tsites 03:49 PM Time: 15:49 Nitroglycerin 100 mcg Intracoronary Given by Dilan Sims MD tsites 03:50 PM Lesion found in Proximal LAD. Pre Stenosis: 70 Pre DOMO Flow: tsites 03:50 PM 2.0 mm x 12 mm Emerge Monorail balloon across target lesion- successful. reused? No tsites 03:51 PM Balloon inflated @ 10 javid for 18 seconds tsites 03:51 PM Time: 15:36 Patient comfortable and pain free: Yes tsites 03:51 PM Time: 15:36LOC: 5 = Fully awake and oriented or at pre-proc level tsites 03:51 PM Balloon catheter removed intact. tsites 03:52 PM HR=66 bpm, HIHG=848/56 mmhg, TmQ9=779.0 %, Resp=27 B/min 03:54 PM 2.25mm x 16mm Synergy drug-eluting stent across target lesion- successful Lot #[id number] tsites 03:54 PM Stent deployed @ 10 javid for 16 seconds tsites 03:55 PM Stent delivery system removed intact. tsites 03:55 PM 2.25 mm x 8mm NC Trek Rx balloon across target lesion- successful. reused? No tsites 03:56 PM Balloon inflated @ 12 javid for 4 seconds tsites 03:57 PM Balloon inflated @ 18 javid for 20 seconds tsites 03:57 PM HR=65 bpm, OKEP=314/58 mmhg, SpO2=99.0 %, Resp=13 B/min 03:59 PM Balloon catheter removed intact. tsites 03:59 PM 2.25mm x 24mm Synergy drug-eluting stent across target lesion- successful Lot #[id number] tsites 04:00 PM Stent deployed @ 12 javid for 18 seconds tsites 04:02 PM Stent delivery system removed intact. tsites 04:02 PM 2.75 mm x 8mm NC Trek Rx balloon across target lesion- successful. reused? No tsites 04:02 PM HR=64 bpm, FZST=108/61 mmhg, UwU7=343.0 %, Resp=12 B/min 04:02 PM Balloon inflated @ 12 javid for 10 seconds tsites 04:03 PM Balloon inflated @ 14 javid for 8 seconds tsites 04:03 PM Recorded Pressure: Ao, HR=64, Condition=Condition 1 (Aorta) Ao 107/52/74 04:03 PM Guide wire removed intact. tsites 04:03 PM Balloon catheter removed intact. tsites 04:05 PM wire reinserted tsites 04:05 PM Guide catheter removed intact. tsites 04:06 PM Bolus angiogram of right Femoral complete: 2 ml/sec for a total of 4 mls tsites 04:06 PM Procedure completed at 16:06 02/23/2018 tsites 04:07 PM Did you address DOMO flow and Dominance? Yes tsites 04:07 PM Sign out completed: Radiation Dose 184 mGy, 1128 cGy/cm2 Fluoro Time: 5.5 Isovue 370 - 200ml contrast 39 ml given by Dilan Sims MD, [facility]. Complications: NoneCardiac Rehab Consult needed: YesConfirmed administered medications: Yes tsites 04:07 PM Isovue 370 - 200ml,1 Bottle(s) used. tsites 04:07 PM HR=65 bpm, QEVP=865/59 mmhg, OeL2=469 %, Resp=12 B/min 04:07 PM act drawn tsites 04:07 PM Sheath left in place to be pulled on floor/holding areaV+Pad tsites 04:07 PM Estimated Blood Loss: less than 20cc tsites 04:07 PM Post ECG NSR tsites 04:07 PM Post Blood Pressure 122/59 tsites 04:08 PM 16:07 Post Pulses Bilateral DP & PT 1+ tsites 04:08 PM Information taught PCI tsites 04:08 PM Education needs Procedure, Plan of Care, and Responsibilities of Patient in Care tsites 04:08 PM Learning barriers :None tsites 04:08 PM Education Methods Verbal tsites 04:08 PM Education evaluation Able to repeat information tsites 04:08 PM Site status No bleeding/hematoma - Rt Groin as reported by Priya De Guzman RT (R) at 16:08 tsites 04:08 PM Opsite applied tsites 04:08 PM Plavix, Effient or Brilinta given Yes tsites 04:08 PM Delay to floor Bed availability tsites 04:09 PM Time: 16:09 Plavix 600 mg Orally Given by Anand Antunez RN tsites 04:12 PM HR=64 bpm, RBME=596/57 mmhg, QfV4=394 %, Resp=13 B/min 04:17 PM At 16:17 the ACT was 245 seconds. tsites 04:19 PM Report given to amanda CHOPRA Pt taken to Holding room Room #1. 16:19 tsites 04:19 PM Patient out of room: 16:19 tsites 04:19 PM no family tsites 04:26 PM Proximal Left Anterior Descending Coronary Artery with 70% stenosis. If graft is supplying this territory, 99 % stenosis. tsites 04:29 PM Report given to ines CHOPRA Pt taken to ICU Room #9. 16:29 tsites Complications Complication None Hemodynamics Pressures Site Systolic/A Wave Diastolic/V Wave Mean AO 114 47 70 AO 107 52 74 Post Procedure Information Blood Pressure: 122/59 mmHg Rhythm: NSR Post procedural instructions were given Closure Device Time Device Success/Fail 02/23/2018 4:19:00 PM Manual Compression Site Checks Time Location Status Staff Sheath In? Note 04:08 PM Rt Groin No bleeding/hematoma Priya De Guzman RT (R) Pulses Time Site Pre-Procedure Post-Procedure Note Bilateral DP & PT 1+ 4:07:00 PM Bilateral DP & PT 1+ Updated by Priya Tovar RT (R) on 02/23/2018 4:30:08 PM Priya Tovar RT electronically signed on 02/23/2018 4:30:45 PM with status of Final
[2018-02-23] MEDS ORDERED: *HR* Atropine Sulfate 1 MG/10 ML SYRINGE ONE (20:10)
--- NOTE | 2018-02-23 21:18 | Electrocardiograph Report ---
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
[2018-02-24] MEDS: 0.9 % Sodium Chloride 1,000 ML IVC SCH (03:43)
--- NOTE | 2018-02-24 07:26 | Event Note ---
Date of Encounter: 02/24/18 Time of Encounter: 08:00 - Cardiology Event Note PCI proximal mid LAD (95-99%) POPPY x 2. Fu in clinic for possible staged PCI of LCx/OM bifurcation if continued anginal symptoms. Cardiac rehab.
[2018-02-24] MEDS: Budesonide/Formoterol 80/4.5 MDI IH SCH (07:34)
[2018-02-24] MEDS: cloNIDine HCl 0.1 MG TABLET PO SCH (09:21)
[2018-02-24] MEDS: Aspirin Enteric Coated 81 MG Tablet PO SCH (09:21)
--- NOTE | 2018-02-24 11:02 | Discharge Summary ---
Orders not resulted at time of discharge: Pending orders 02/22/18 15:37 ECG 12 lead ECG [ECG] Stat 02/22/18 15:50 Red Blood Cells [BBK] Routine Type and Screen [BBK] Routine 02/23/18 03:40 Culture,Urine [RM] Stat 02/23/18 12:39 CL Cardiac Catheterization [CL] Routine Date of Encounter: 02/24/18 Time of Encounter: 10:00 - Hospital Course Hospital course: Ms. Cordova is a 62 year old female with history of HTN, carotid artery disease, and COPD who presented for elective C to assess ongoing dyspnea and abnormal stress test. LHC completed 02/22/18 revealed severe three vessel disease. She was admitted for CT surgery evaluation and recommendation. She initially was recommended to undergo CABG and scheduled the next day. Due to inability to obtain arterial line access after numerous attempts her surgery was cancelled. After further discussion she was recommended to go for PCI. She underwent elective PCI to her LAD with 2 POPPY on 02/23/18. There was no complication from her procedure. No complications from right femoral access site. Importance of DAPT with asa and plavix uninterrupted for minimum of one year discussed and she voiced understanding. Continue statin and BB. Activity restrictions reviewed as stated above. Cardiac rehab ordered. SHe is recommended to have close out-pt f/u with Dr. Sims. If she has recurrent chest pain staged PCI to the Lcx/OM bifurcation can be considered. [facility] 02/22/18- Lesion Findings/Interventions * Left Main Coronary Artery There is a 40% stenosis in the proximal Mid LMCA. * Left Anterior Descending There is a 70% stenosis in the Proximal LAD. There is a 99% stenosis in the Mid LAD. * Circumflex There is a 70% stenosis in the Mid Circumflex. There is a 70% stenosis in the 1st Marginal (1,1,1 bifurcation lesion) * Right Coronary Artery There is a 50% stenosis in the Proximal RCA. 95% ostial PLB stenosis [facility] from 02/23/18 report pending. S/p POPPY to the LAD x 2. - Time Spent with Patient Total time spent providing and/or coordinating discharge services: Greater than 30 minutes (1H, d/c summary, teaching, med rec.) - Discharge Medications Prescriptions: Clopidogrel [Plavix] 75 mg PO DAILY #30 tablet Home Medications: Albuterol Sulfate [Ventolin Hfa] 2 puff IH Q6H PRN 02/22/18 [History] Aspirin [Lo-Dose Aspirin EC] 81 mg PO DAILY 02/22/18 [History] Cyclobenzaprine HCl 5 mg PO TID PRN 02/22/18 [History] Losartan/Hydrochlorothiazide [Losartan-Hctz 100-25 mg Tab] 1 each PO DAILY 02/22 [History] Metoprolol Tartrate [Lopressor] 50 mg PO BID 02/22/18 [History] Mometasone/Formoterol [Dulera 100 Mcg/5 Mcg Inhaler] 2 puff IH BID 02/22/18 [ History] Paroxetine HCl [Paxil] 10 mg PO DAILY 02/22/18 [History] cloNIDine HCl [CloNIDine HCl] 0.1 mg PO BID 02/22/18 [History] Clopidogrel [Plavix] 75 mg PO DAILY #30 tablet 02/24/18 [Rx] Allergies/Adverse Reactions: 3 Allergy/AdvReac Type Severity Reaction Status Date / Time Penicillins Allergy Hives Verified 02/23/18 10:37 Veloszz-Geo-Jjo Reductase Allergy Nausea Verified 02/23/18 10:37 Inhibitor [Statins] Date of admission: 02/22/18 14:26 Primary care physician: Maritza Kang CNP Consults: 02/24/18 07:59 Consult to Cardiac Rehabilitation-Phase1 [CONS] Routine Comment: Reason for Consult: PCI Call Completed: No Physical Examination Vital Signs, Last 4 Hours Pulse Resp BP Pulse Ox 02/24/18 08:30 81 19 152/77 97 02/24/18 07:34 16 148/69 95 Chest X-Ray 02/22/18 15:37 IMPRESSION: No acute cardiopulmonary disease D/ / Dong Ha MD / Dong Ha MD Interpreting Provider: Dong Ha MD General: Conversant, No Apparent Distress HEENT: Atraumatic, Normocephaly, Mucus Membranes Moist Neck: No JVD, Normal carotid pulses Cardiac: Reg Rate and Rhythm, Normal S1 and S2, No Murmur Lungs: Normal Breath Sounds, No Wheeze, Rales, Rhonchi Neuro: Alert and responsive, No focal deficits noted Abdomen: Soft, Non-Tender Skin: No rashes noted on visualized skin Musculoskeletal: No Chest Wall Tenderness Extremities: No Clubbing, No Cyanosis, No Edema, Normal Pulses, Other (Right groin without hematoma. No problems with bilateral radial access sites. ) - Patient Status Disposition: Home, Self-Care Condition: Good Functional capacity at discharge: independent ambulation Overall status at discharge: patient is progressing back to baseline - Discharge Instructions Follow Up With: Maritza Kang CNP [Primary Care Provider] - Dilan Sims MD [Partnered Physician] - Additional Instructions: RISK FACTORS: STOP SMOKING: If you smoke, STOP. Smoking or tobacco use significantly increases your risk of heart disease because nicotine causes the arteries to narrow or constrict. It also causes fats to stick to the artery. Your chances of having a heart attack are greatly increased if you continue to smoke. For more information, call the education line for smoking cessation 7-862-LISBTQI EAT A LOW FAT/CHOLESTEROL/SODIUM DIET: This diet may help reduce your chances of having a heart attack. LIFTING: Avoid lifting anything more than 10 pounds for 5-7 days Prior to straining, laughing, sneezing and/or coughing, apply manual pressure directly over insertion site. ACTIVITY: You may walk or climb stairs as tolerated You can resume sexual activity as tolerated In general, you are encouraged to engage in a minimum of 30 minutes or more of moderate intensity physical activity, such as brisk walking, daily or at least 3 -4 times weekly BATHING Do not submerge the site into water (bath tub, hot tub, swimming pool) for 1 week. This can be a source for infection into the blood stream. You may shower after 24 hours SITE CARE: After 24 hours, you may remove the dressing and leave the site open to air. Keep the site clean and dry. Clean gently and pat dry. You can expect bruising and tenderness that gradually resolve within a week or two. Return to work as instructed per your physician Resume driving as instructed per physician Keep all scheduled follow up appointments Resume medications as instructed IMPORTANT: If prescribed a Platelet Aggregation Inhibitor such as, Plavix, Brilinta or Effient: Duration of therapy is minimum one year These medications are often used in combination with Aspirin in prevention of future heart attacks Never discontinue unless consult with your Utility Sales Representative STROKE (CVA) Risk factors for a stroke are: Age, cigarette smoking, diabetes, excessive alcohol consumption, family history, high blood pressure, overweight, physical inactivity, prior stroke, heart attack, diagnosis of carotid artery stenosis or other artery disease. Warning signs: Sudden numbness or weakness of the face, arm or leg; especially on one side of the body, sudden confusion, trouble speaking or understanding, sudden trouble seeing in one or both eyes, sudden trouble walking, dizziness, loss of balance or coordination, sudden severe headache with no cause. Call 911 or go to the Emergency Room. CONGESTIVE HEART FAILURE: If you have been diagnosed with Congestive Heart Failure (CHF) and your symptoms return, make an appointment with your physician Weigh yourself daily. Notify your physician if you have a weight gain of two or more pounds in one day or five or more pounds in one week. If you experience any difficulty breathing, please call 911 BLEEDING: Although the risk of bleeding is minimal, it can happen. If you have any bleeding from the site, apply firm pressure above the puncture site for 10-15 minutes. If the bleeding does not stop, continue manual pressure and call 911 Contact your physician if: You develop a fever greater than 101 degrees Fahrenheit Your site becomes reddened or has any drainage You have an increase in pain or burning at the site or if a large knot forms at the site. If you experience chest pain, shortness of breath, dizziness, or extreme tiredness, stop the activity and rest. Please notify your physicians office if you experience any of these symptoms and they are not relieved by rest please call 911!RISK FACTORS: STOP SMOKING: If you smoke, STOP. Smoking or tobacco use significantly increases your risk of heart disease because nicotine causes the arteries to narrow or constrict. It also causes fats to stick to the artery. Your chances of having a heart attack are greatly increased if you continue to smoke. For more information, call the education line for smoking cessation 1-321-NWFIVHH EAT A LOW FAT/CHOLESTEROL/SODIUM DIET: This diet may help reduce your chances of having a heart attack. LIFTING: With affected extremity: Avoid bending, pushing off and lifting more than 2 pounds for 24 hours The following 48 hours, avoid lifting anything more than 5 pounds Avoid strenuous activity or repetitive motions ACTIVITY: You may walk or climb stairs as tolerated You can resume sexual activity as tolerated In general, you are encouraged to engage in a minimum of 30 minutes or more of moderate intensity physical activity, such as brisk walking, daily or at least 3 -4 times weekly BATHING Do not submerge the site into water (bath tub, hot tub, swimming pool, dishes) for 1 week. This can be a source for infection into the blood stream. You may shower after 24 hours SITE CARE: After 24 hours, you may remove the dressing and leave the site open to air. Keep the site clean and dry. Clean gently and pat dry. You can expect bruising and tenderness that gradually resolve within a week or two. Return to work as instructed per your physician Resume driving as instructed per physician Keep all scheduled follow up appointments Resume medications as instructed IMPORTANT: If prescribed a Platelet Aggregation Inhibitor such as, Plavix, Brilinta or Effient: Duration of therapy is minimum one year These medications are often used in combination with Aspirin in prevention of future heart attacks Never discontinue unless consult with your Utility Sales Representative STROKE (CVA) Risk factors for a stroke are: Age, cigarette smoking, diabetes, excessive alcohol consumption, family history, high blood pressure, overweight, physical inactivity, prior stroke, heart attack, diagnosis of carotid artery stenosis or other artery disease. Warning signs: Sudden numbness or weakness of the face, arm or leg; especially on one side of the body, sudden confusion, trouble speaking or understanding, sudden trouble seeing in one or both eyes, sudden trouble walking, dizziness, loss of balance or coordination, sudden severe headache with no cause. Call 911 or go to the Emergency Room. CONGESTIVE HEART FAILURE: If you have been diagnosed with Congestive Heart Failure (CHF) and your symptoms return, make an appointment with your physician Weigh yourself daily. Notify your physician if you have a weight gain of two or more pounds in one day or five or more pounds in one week. If you experience any difficulty breathing, please call 911 BLEEDING: Although the risk of bleeding is minimal, it can happen. If you have any bleeding from the site, apply firm pressure above the puncture site for 10-15 minutes. If the bleeding does not stop, continue manual pressure and call 911 Contact [facility] ( ) if: You develop a fever greater than 101 degrees Fahrenheit Your site becomes reddened or has any drainage You have an increase in pain or burning at the site or if a large knot forms at the site. If you experience chest pain, shortness of breath, dizziness, or extreme tiredness, stop the activity and rest. Please notify [facility] office if you experience any of these symptoms and they are not relieved by rest please call 911! - Diet and Activity Activity: increase activity as tolerated
[2018-02-24 11:22] VITALS: BP 182/96
== END 2018-02-24 13:30 | disposition home or self-care (01) | DRG 175 ==
LOC: INVDIALAB 06:33 → 2NENU 12:35 → ICNU 02-23 16:41
PROVIDERS: ADMIT Emergency Medicine; ATTEND Emergency Medicine